=== PATIENT | male | born 1985 | race Hispanic/Latino ===

== ENCOUNTER 2023-03-22 13:52 | Inpatient (IN) | payer MEDICAID ==
[~2023-03-22] VITALS: Ht 160 cm; Wt 55.6 kg
[~2023-03-22 13:52] MED LIST: ASCO500T10 PO; CARB200T6 PO; CHOL400C9 PO; CLIN-141 PO; DOCU100T PO; FAMO20TA8 PO; FISH1CAP50 PO; HYDR-4064 PO; IBUP-2076 PO; LORA0.5T2 PO; MVIT PO; OLAN5TAB76 PO; TOPI100T37 PO; VITA400C25 PO; [UNRECOGNIZED DRUG - OTHER] PO
[2023-03-22 15:44] LABS: BASOPHILS # (AUTO) 0.01 K/uL (0.00-0.20); BASOPHILS % (AUTO) 0.1 % (0.0-5.0); HEMATOCRIT 36.2 % (42-54); IMMATURE GRANULOCYTE ABSOLUTE 0.04 K/uL (0-1); LYMPHOCYTES # (AUTO) 1.3 K/uL (1.0-4.8); LYMPHOCYTES % (AUTO) 15.5 % (21.0-51.0); MEAN CORPUSCULAR HEMOGLOBIN 30.1 pg (27.0-33.0); MEAN CORPUSCULAR HGB CONC 32.3 g/dL (32.0-36.0); MEAN CORPUSCULAR VOLUME 93.1 fL (79-99); MONOCYTES # (AUTO) 0.8 K/uL (0.1-1.0); MONOCYTES % (AUTO) 9.3 % (3.0-13.0); NEUTROPHILS # (AUTO) 6.4 K/uL (1.8-7.7); NEUTROPHILS % (AUTO) 74.6 % (40.0-77.0); PLATELET COUNT (AUTO) 139 K/uL (130-400); RED BLOOD CELL COUNT(AUTO) 3.89 MIL/uL (4.50-6.20); RED CELL DISTRIBUTION WIDTH 13.3 % (11.0-15.5); WHITE BLOOD COUNT (AUTO) 8.5 K/uL (4.8-10.8)
[2023-03-22 15:55] LABS: CREATININE 0.8 mg/dL (0.5-1.5)
[2023-03-22 16:00] LABS: ALBUMIN 3.3 g/dL (3.5-5.0); BILIRUBIN,TOTAL 0.3 mg/dL (0.2-1.0); TOTAL PROTEIN, SERUM 8.3 g/dL (6.0-8.3)
[2023-03-22] MEDS ORDERED: VANCOMYCIN KIT 1 GM/250 ML IV.KIT IV ONE (17:30)
[2023-03-22] MEDS ORDERED: ACETAMINOPHEN WITH CODEINE 1 TAB TAB PO ONE (17:30)
[2023-03-22] MEDS ORDERED: 0.9%NACL 1000ML 1,000 ML IV ONE ×2 (17:30→19:00)
[2023-03-22] MEDS: LEVOFLOXACIN 500 MG/D5W 100 ML 100 ML IV SCH (19:00)
[2023-03-22] MEDS ORDERED: VANCOMYCIN PROTOCOL PER PHARMACY IV SCH (19:00)
[2023-03-22 19:15] LABS: INR < 0.93 (0.85-1.15); PROTHROMBIN TIME 10.8 SEC (9.6-11.6)
[2023-03-22 19:17] LABS: HEMOGLOBIN A1C 5.4 % (4.0-6.0); PARTIAL THROMBOPLASTIN TIME 38.1 SEC (26.3-35.5)
[2023-03-22 19:41] LABS: THYROID STIMULATING HORMONE 2.87 uIU/mL (0.36-3.74)
[2023-03-22] MEDS ORDERED: MILK500C PO (21:33)
[2023-03-22] MEDS ORDERED: LYSI100014 PO (21:33)
[2023-03-22] MEDS ORDERED: DOXY100T2 PO (21:33)
[2023-03-22] MEDS ORDERED: ACET325T51 PO (21:33)
[2023-03-22] MEDS ORDERED: AMOX500C2 PO (21:33)
[2023-03-22] MEDS ORDERED: OLAN10TA73 PO (21:33)
[2023-03-22] MEDS ORDERED: BROM5CAP3 PO (21:33)
[2023-03-22] MEDS ORDERED: ALEN35TA53 PO (21:33)
[2023-03-22] MEDS ORDERED: LEVE10006 PO (21:33)
[2023-03-22] MEDS ORDERED: CHOL100046 PO (21:33)
[2023-03-22] MEDS ORDERED: CALC500T36 PO (21:33)
[2023-03-22] MEDS ORDERED: LACT10SO9 PO (21:33)
[2023-03-22] MEDS ORDERED: DIVA-78 PO ×2 (21:33)
[2023-03-22] MEDS ORDERED: NAPR-1023 PO (21:33)
[2023-03-23] MEDS: VANCOMYCIN 1G/250ML KIT 250 ML IV SCH ×2 (06:15→18:37)
[2023-03-23 07:01] LABS: BASOPHILS # (AUTO) 0.02 K/uL (0.00-0.20); BASOPHILS % (AUTO) 0.3 % (0.0-5.0); EOSINOPHILS # (AUTO) 0.01 K/uL (0.00-0.70); EOSINOPHILS % (AUTO) 0.1 % (0.0-8.0); HEMATOCRIT 33.5 % (42-54); IMMATURE GRANULOCYTE ABSOLUTE 0.05 K/uL (0-1); LYMPHOCYTES # (AUTO) 1.3 K/uL (1.0-4.8); LYMPHOCYTES % (AUTO) 16.9 % (21.0-51.0); MEAN CORPUSCULAR HEMOGLOBIN 30.1 pg (27.0-33.0); MEAN CORPUSCULAR HGB CONC 33.1 g/dL (32.0-36.0); MEAN CORPUSCULAR VOLUME 90.8 fL (79-99); MONOCYTES # (AUTO) 0.9 K/uL (0.1-1.0); MONOCYTES % (AUTO) 11.5 % (3.0-13.0); NEUTROPHILS # (AUTO) 5.3 K/uL (1.8-7.7); NEUTROPHILS % (AUTO) 70.5 % (40.0-77.0); PLATELET COUNT (AUTO) 138 K/uL (130-400); RED BLOOD CELL COUNT(AUTO) 3.69 MIL/uL (4.50-6.20); RED CELL DISTRIBUTION WIDTH 13.4 % (11.0-15.5); WHITE BLOOD COUNT (AUTO) 7.5 K/uL (4.8-10.8)
[2023-03-23 07:11] LABS: CREATININE 0.7 mg/dL (0.5-1.5); POTASSIUM 4.2 mmol/L (3.5-5.1)
[2023-03-23 07:12] LABS: INR 0.96 (0.85-1.15); PROTHROMBIN TIME 11.2 SEC (9.6-11.6)
[2023-03-23 07:13] LABS: PARTIAL THROMBOPLASTIN TIME 37.6 SEC (26.3-35.5)
[2023-03-23] MEDS: LYSINE 500 MG PO SCH (09:00)
[2023-03-23] MEDS: BROMOCRIPTINE MESYLATE 10 MG PO SCH ×2 (09:00→21:00)
[2023-03-23] MEDS: LEVETIRACETAM 500 MG TABLET PO SCH ×2 (10:35→20:10)
[2023-03-23] MEDS: LACTULOSE 20 GM/30 ML UDCUP PO SCH (10:35)
[2023-03-23] MEDS: OLANZAPINE 5 MG TAB PO SCH ×2 (10:36→20:11)
[2023-03-23] MEDS: DIVALPROEX SODIUM 250 MG TABLET.DR PO SCH ×2 (10:36→20:11)
[2023-03-23 10:56] LABS: APPEARANCE,URINE CLEAR (CLEAR); BILIRUBIN,URINE NEGATIVE (NEGATIVE); COLOR,URINE COLORLESS (YELLOW); GLUCOSE, URINE (UA) NEGATIVE (NEGATIVE); KETONES,URINE NEGATIVE (NEGATIVE); LEUKOCYTE ESTERASE ,URINE NEGATIVE Leu/uL (NEGATIVE); NITRATE,URINE NEGATIVE (NEGATIVE); OCCULT BLOOD,URINE NEGATIVE (NEGATIVE); PH,URINE 7.5 (5.0-8.0); PROTEIN,URINE NEGATIVE (NEGATIVE); UROBILINOGEN,URINE 0.2 mg/dL (0.2-1.0)
[2023-03-23 10:58] LABS: ADD UA MICROSCOPIC NO
[2023-03-23] MEDS: ACETAMINOPHEN 500 MG TABLET PO PRN ×2 (15:29→23:36)
[2023-03-23 20:00] VITALS: BP 118/83; PULSE 80; RESP 18; O2SAT 100
[2023-03-23] MEDS: LEVOFLOXACIN 500 MG/D5W 100 ML 100 ML IV SCH (20:09)
[2023-03-23] MEDS ORDERED: DIVALPROEX SODIUM 750 MG PO SCH (21:00)
[2023-03-24] VITALS: BP 106/68; PULSE 79; RESP 18
[2023-03-24 04:00] VITALS: BP 104/70; PULSE 69; RESP 18
[2023-03-24 05:50] LABS: BASOPHILS # (AUTO) 0.04 K/uL (0.00-0.20); BASOPHILS % (AUTO) 0.5 % (0.0-5.0); HEMATOCRIT 38.7 % (42-54); IMMATURE GRANULOCYTE ABSOLUTE 0.23 K/uL (0-1); LYMPHOCYTES % (AUTO) 24.7 % (21.0-51.0); MEAN CORPUSCULAR HGB CONC 32.3 g/dL (32.0-36.0); MONOCYTES % (AUTO) 11.9 % (3.0-13.0); NEUTROPHILS # (AUTO) 4.9 K/uL (1.8-7.7); NEUTROPHILS % (AUTO) 60.1 % (40.0-77.0); PLATELET COUNT (AUTO) 182 K/uL (130-400); RED BLOOD CELL COUNT(AUTO) 4.16 MIL/uL (4.50-6.20); RED CELL DISTRIBUTION WIDTH 13.2 % (11.0-15.5); WHITE BLOOD COUNT (AUTO) 8.1 K/uL (4.8-10.8)
[2023-03-24 06:04] LABS: ALBUMIN 2.8 g/dL (3.5-5.0); BILIRUBIN,TOTAL 0.3 mg/dL (0.2-1.0); CREATININE 0.9 mg/dL (0.5-1.5); MAGNESIUM 2.1 mg/dL (1.80-2.40); POTASSIUM 4.5 mmol/L (3.5-5.1); TOTAL PROTEIN, SERUM 7.7 g/dL (6.0-8.3); VANCOMYCIN TROUGH 10.8 UG/ML (10.0-20.0)
[2023-03-24] MEDS: VANCOMYCIN 1G/250ML KIT 250 ML IV SCH ×3 (06:14→19:10)
[2023-03-24 08:00] VITALS: BP 100/66; PULSE 66; RESP 14; O2SAT 97
[2023-03-24] MEDS: LYSINE 500 MG PO SCH (09:00)
[2023-03-24] MEDS: BROMOCRIPTINE MESYLATE 10 MG PO SCH ×2 (09:00→20:25)
[2023-03-24] MEDS: LACTULOSE 20 GM/30 ML UDCUP PO SCH (09:57)
[2023-03-24] MEDS: DIVALPROEX SODIUM 250 MG TABLET.DR PO SCH ×2 (09:58→20:24)
[2023-03-24] MEDS: LEVETIRACETAM 500 MG TABLET PO SCH ×2 (09:58→20:24)
[2023-03-24] MEDS: OLANZAPINE 5 MG TAB PO SCH ×2 (09:59→20:24)
[2023-03-24 12:00] VITALS: BP 112/69; PULSE 69; RESP 14
[2023-03-24 16:00] VITALS: BP 101/54; PULSE 71; RESP 14
[2023-03-24 19:15] VITALS: BP 103/60; PULSE 74; RESP 18; O2SAT 99
[2023-03-24] MEDS: LEVOFLOXACIN 500 MG/D5W 100 ML 100 ML IV SCH (20:24)
[2023-03-25] VITALS (7 sets, daily range): BP systolic 102–110; BP diastolic 56–72; PULSE 62–79; RESP 18; O2SAT 98–99
[2023-03-25] MEDS: VANCOMYCIN 1G/250ML KIT 250 ML IV SCH ×2 (04:55→17:39)
[2023-03-25 05:26] LABS: MEAN CORPUSCULAR HEMOGLOBIN 30.1 pg (27.0-33.0); MEAN CORPUSCULAR HGB CONC 32.8 g/dL (32.0-36.0); RED BLOOD CELL COUNT(AUTO) 4.35 MIL/uL (4.50-6.20); RED CELL DISTRIBUTION WIDTH 13.2 % (11.0-15.5); WHITE BLOOD COUNT (AUTO) 7.2 K/uL (4.8-10.8)
[2023-03-25 05:41] LABS: CREATININE 0.9 mg/dL (0.5-1.5); POTASSIUM 4.3 mmol/L (3.5-5.1)
[2023-03-25] MEDS: BROMOCRIPTINE MESYLATE 10 MG PO SCH ×2 (09:00→20:52)
[2023-03-25] MEDS: LYSINE 500 MG PO SCH (09:00)
[2023-03-25] MEDS: LEVETIRACETAM 500 MG TABLET PO SCH ×2 (12:23→20:11)
[2023-03-25] MEDS: OLANZAPINE 5 MG TAB PO SCH ×2 (12:24→20:11)
[2023-03-25] MEDS: DIVALPROEX SODIUM 250 MG TABLET.DR PO SCH ×2 (12:25→20:12)
[2023-03-25] MEDS: LACTULOSE 20 GM/30 ML UDCUP PO SCH (12:25)
[2023-03-25] MEDS: LEVOFLOXACIN 500 MG/D5W 100 ML 100 ML IV SCH (20:47)
[2023-03-26] VITALS (23 sets, daily range): BP systolic 98–131; BP diastolic 60–79; PULSE 58–88; RESP 14–20; O2SAT 97–99
[2023-03-26 05:23] LABS: BASOPHILS # (AUTO) 0.05 K/uL (0.00-0.20); BASOPHILS % (AUTO) 0.8 % (0.0-5.0); HEMATOCRIT 38.3 % (42-54); LYMPHOCYTES # (AUTO) 1.9 K/uL (1.0-4.8); LYMPHOCYTES % (AUTO) 29.6 % (21.0-51.0); MEAN CORPUSCULAR HEMOGLOBIN 29.6 pg (27.0-33.0); MEAN CORPUSCULAR HGB CONC 31.6 g/dL (32.0-36.0); MEAN CORPUSCULAR VOLUME 93.6 fL (79-99); MONOCYTES # (AUTO) 0.7 K/uL (0.1-1.0); MONOCYTES % (AUTO) 10.2 % (3.0-13.0); NEUTROPHILS # (AUTO) 3.5 K/uL (1.8-7.7); NEUTROPHILS % (AUTO) 54.7 % (40.0-77.0); PLATELET COUNT (AUTO) 228 K/uL (130-400); RED BLOOD CELL COUNT(AUTO) 4.09 MIL/uL (4.50-6.20); WHITE BLOOD COUNT (AUTO) 6.5 K/uL (4.8-10.8)
[2023-03-26 05:43] LABS: CREATININE 0.9 mg/dL (0.5-1.5); POTASSIUM 4.2 mmol/L (3.5-5.1); VANCOMYCIN TROUGH 10.1 UG/ML (10.0-20.0)
[2023-03-26] MEDS: VANCOMYCIN 1G/250ML KIT 250 ML IV SCH (06:34)
[2023-03-26] MEDS: LACTULOSE 20 GM/30 ML UDCUP PO SCH (09:00)
[2023-03-26] MEDS: BROMOCRIPTINE MESYLATE 10 MG PO SCH ×2 (09:00→21:00)
[2023-03-26] MEDS: LEVETIRACETAM 500 MG TABLET PO SCH ×2 (09:00→19:43)
[2023-03-26] MEDS: LYSINE 500 MG PO SCH (09:00)
[2023-03-26] MEDS: DIVALPROEX SODIUM 250 MG TABLET.DR PO SCH ×2 (09:00→19:43)
[2023-03-26] MEDS: OLANZAPINE 5 MG TAB PO SCH ×2 (09:00→19:42)
[2023-03-26] MEDS ORDERED: MIDAZOLAM HCL 1 MG/ML 2ML VIAL ONE (13:08)
[2023-03-26] MEDS ORDERED: FENTANYL CITRATE PF 50 MCG/1 ML 2ML VIAL ONE (13:08)
[2023-03-26] MEDS ORDERED: PROPOFOL 10 MG/ML 20ML VIAL IV ONE (13:08)
[2023-03-26] MEDS ORDERED: DEXAMETHASONE SOD PHOSPHATE 4 MG/ML 1ML VIAL ONE (13:34)
[2023-03-26] MEDS ORDERED: ONDANSETRON 4MG INJ ONE (13:34)
[2023-03-26] MEDS ORDERED: PHENYLEPHRINE HCL 10 MG/ML 1ML VIAL IV ONE (13:40)
[2023-03-26] MEDS: VANCOMYCIN 1.25 GM/250 ML BAG 250 ML IV SCH (18:18)
[2023-03-26] MEDS: LEVOFLOXACIN 500 MG/D5W 100 ML 100 ML IV SCH (18:25)
[2023-03-27] VITALS (7 sets, daily range): BP systolic 95–128; BP diastolic 54–71; PULSE 61–84; RESP 16–20; O2SAT 98
[2023-03-27] MEDS: VANCOMYCIN 1.25 GM/250 ML BAG 250 ML IV SCH ×2 (05:21→18:43)
[2023-03-27 05:41] LABS: HEMATOCRIT 35.5 % (42-54); MEAN CORPUSCULAR HEMOGLOBIN 30.2 pg (27.0-33.0); MEAN CORPUSCULAR VOLUME 91.5 fL (79-99); RED BLOOD CELL COUNT(AUTO) 3.88 MIL/uL (4.50-6.20); RED CELL DISTRIBUTION WIDTH 12.9 % (11.0-15.5); WHITE BLOOD COUNT (AUTO) 10.2 K/uL (4.8-10.8)
[2023-03-27 06:06] LABS: CREATININE 0.9 mg/dL (0.5-1.5)
[2023-03-27] MEDS: LACTULOSE 20 GM/30 ML UDCUP PO SCH ×2 (09:00→10:21)
[2023-03-27] MEDS: BROMOCRIPTINE MESYLATE 10 MG PO SCH ×2 (09:00→21:00)
[2023-03-27] MEDS: LYSINE 500 MG PO SCH (09:00)
[2023-03-27] MEDS: LEVETIRACETAM 500 MG TABLET PO SCH ×2 (10:20→20:53)
[2023-03-27] MEDS: DIVALPROEX SODIUM 250 MG TABLET.DR PO SCH ×2 (10:21→20:53)
[2023-03-27] MEDS: OLANZAPINE 5 MG TAB PO SCH ×2 (10:30→20:54)
[2023-03-27] MEDS: LEVOFLOXACIN 500 MG/D5W 100 ML 100 ML IV SCH (18:43)
[2023-03-28 04:00] VITALS: BP 100/69; PULSE 71; RESP 20
[2023-03-28] MEDS: ACETAMINOPHEN 500 MG TABLET PO PRN (04:05)
[2023-03-28 06:00] LABS: HEMATOCRIT 37.2 % (42-54); MEAN CORPUSCULAR HEMOGLOBIN 30.1 pg (27.0-33.0); MEAN CORPUSCULAR VOLUME 94.2 fL (79-99); RED BLOOD CELL COUNT(AUTO) 3.95 MIL/uL (4.50-6.20); RED CELL DISTRIBUTION WIDTH 13.2 % (11.0-15.5); WHITE BLOOD COUNT (AUTO) 7.8 K/uL (4.8-10.8)
[2023-03-28] MEDS: VANCOMYCIN 1.25 GM/250 ML BAG 250 ML IV SCH (06:21)
[2023-03-28 07:21] LABS: CREATININE 0.7 mg/dL (0.5-1.5); POTASSIUM 3.9 mmol/L (3.5-5.1)
[2023-03-28 08:00] VITALS: BP 101/51; PULSE 70; RESP 18
[2023-03-28] MEDS: LYSINE 500 MG PO SCH (09:00)
[2023-03-28] MEDS: BROMOCRIPTINE MESYLATE 10 MG PO SCH (09:00)
[2023-03-28 09:45] VITALS: O2SAT 96
[2023-03-28] MEDS: LACTULOSE 20 GM/30 ML UDCUP PO SCH (09:54)
[2023-03-28] MEDS: OLANZAPINE 5 MG TAB PO SCH (09:55)
[2023-03-28] MEDS: DIVALPROEX SODIUM 250 MG TABLET.DR PO SCH (09:55)
[2023-03-28] MEDS: LEVETIRACETAM 500 MG TABLET PO SCH (09:55)
[2023-03-28] MEDS ORDERED: CHOL100046 PO (10:32)
[2023-03-28] MEDS ORDERED: FISH1CAP50 PO (10:32)
[2023-03-28] MEDS ORDERED: MVIT PO (10:32)
[2023-03-28 12:00] VITALS: BP 119/75; PULSE 113; RESP 19
[2023-03-28 16:00] VITALS: BP 113/66; PULSE 82; RESP 16
== END 2023-03-28 19:45 | disposition short-term general hospital (02) | DRG 351 ==
LOC: EDH 13:52 → EDHIP 13:53 → 3BH 03-23 17:00
PROVIDERS: ADMIT Internal Medicine; ATTEND Internal Medicine
PROC: 0JBH0ZZ Excision of Left Lower Arm Subcutaneous Tissue and Fascia, Open Approach (ICD-10-PCS; principal; 2023-03-26 13:22)
DX: M70.22 Olecranon bursitis, left elbow (principal); F79 Unspecified intellectual disabilities; L03.114 Cellulitis of left upper limb; L02.414 Cutaneous abscess of left upper limb; G40.802 Other epilepsy, not intractable, without status epilepticus; G80.9 Cerebral palsy, unspecified; H50.15 Alternating exotropia; H52.11 Myopia, right eye; H52.203 Unspecified astigmatism, bilateral; Z88.8 Allergy status to other drugs, medicaments and biological substances
CPT/HCPCS: 36415; 73070; 76882; 80048; 80053; 80202; 81003; 82550; 83036; 83605; 83735; 84145; 84443; 85025; 85027; 85610; 85651; 85730; 86140; 87040; 87070; 87076; 87205; 96365; 96366; G0378; J1100; J1956; J2250; J2371; J2405; J2704; J3010; J3370; J7030; 3370; A4216; A4222; A4223; A4649; A4930; A6223; J3490; Q4050